=== PATIENT | male | born 1970 | race Caucasian/White ===

== ENCOUNTER → 2021-10-07 | Outpatient (REF) | LOC: M PLAIMG 12:17 | PROVIDERS: ATTEND Internal Medicine | DX: Z00.00 Encounter for general adult medical examination without abnormal findings (principal) ==

== ENCOUNTER 2022-07-10 11:50 | Day surgery (SDC) | payer OTHER ==
[~2022-07-10] VITALS: Ht 182.9 cm; Wt 96.6 kg
[~2022-07-10 11:50] MED LIST: NS 1,000 ML IV ONE
[2022-07-10] MEDS ORDERED: propofoL 200 MG/20 ML VIAL As Ordered ONE (14:06)
[2022-07-10] MEDS ORDERED: LIDOCAINE 2% 100MG/5ML SDV (FOR ANES.) As Ordered ONE (14:06)
[2022-07-10 14:40] VITALS: BP 160/93
== END 2022-07-10 14:44 | disposition home or self-care (01) ==
LOC: M OPP 11:50
PROVIDERS: ATTEND Internal Medicine Gastroenterology
DX: Z12.11 Encounter for screening for malignant neoplasm of colon (principal); K63.5 Polyp of colon; K64.8 Other hemorrhoids; K57.30 Diverticulosis of large intestine without perforation or abscess without bleeding; F17.200 Nicotine dependence, unspecified, uncomplicated